=== PATIENT | female | born 1985 | race Caucasian/White ===

== ENCOUNTER → 2016-06-06 | Outpatient (CLI) | payer OTHER ==
[~2016-06-06] MED LIST: NORC5TAB PO
[2016-06-06 11:28] LABS: BASO # 0.1 K/mm3 (0.0-0.2); BASO % 1.1 % (0.0-1.0); EOS # 0.2 K/mm3 (0.0-0.50); EOS % 2.7 % (0.0-3.0); LYMPH # 1.7 K/mm3 (1.5-6.5); LYMPH % 22.2 % (24.0-44.0); MEAN CORPUSCULAR HEMOGLOBIN 30.1 pg (27.0-33.0); MEAN CORPUSCULAR VOLUME 91.3 fl (80.0-96.0); MONO # 0.4 K/mm3 (0.0-0.8); NEUTROPHILS # 4.7 K/mm3 (1.8-7.7); NEUTROPHILS % 67.4 % (36.0-66.0); RED CELL DISTRIBUTION WIDTH 13.2 % (11.5-14.5)
[2016-06-06 11:54] LABS: ALBUMIN/GLOBULIN RATIO 1.33 (1.00-1.93); ALKALINE PHOSPHATASE 101 U/L (45-117); ALT/SGPT 23 U/L (12-78); ANION GAP 6 MEQ/L (8-16); AST/SGOT 17 U/L (15-37); BILIRUBIN,TOTAL 0.8 MG/DL (0.2-1.0); BLOOD UREA NITROGEN 9 MG/DL (7-18); CALCIUM LEVEL 9.4 MG/DL (8.5-10.1); CARBON DIOXIDE LEVEL 29 MEQ/L (21-32); CHLORIDE LEVEL 106 MEQ/L (98-107); CREATININE FOR GFR 0.75 MG/DL (0.55-1.02); GLOMERULAR FILTRATION RATE > 60.0 (>60); GLUCOSE, FASTING 98 MG/DL (70-105); POTASSIUM SERUM 4.6 MEQ/L (3.5-5.1); SODIUM LEVEL 141 MEQ/L (136-145)
== END ==
LOC: M LAB 10:44
PROVIDERS: ATTEND Physician Assistant Medical
DX: K59.00 Constipation, unspecified (principal)

== ENCOUNTER → 2016-10-29 | Outpatient (CLI) | payer OTHER ==
[~2016-10-29] MED LIST changes: +NORC1TAB4 PO; -NORC5TAB PO
[2016-10-29 09:39] LABS: BASO % 0.7 % (0.0-1.0); EOS # 0.3 K/mm3 (0.0-0.50); EOS % 4.4 % (0.0-3.0); LYMPH # 1.4 K/mm3 (1.5-6.5); LYMPH % 20.4 % (24.0-44.0); MEAN CORPUSCULAR HEMOGLOBIN 32.4 pg (27.0-33.0); MEAN CORPUSCULAR HGB CONC 34.4 g/dl (32.0-36.5); MONO # 0.5 K/mm3 (0.0-0.8); MONO % 7.9 % (0.0-5.0); NEUTROPHILS # 4.3 K/mm3 (1.8-7.7); NEUTROPHILS % 64.6 % (36.0-66.0); RED CELL DISTRIBUTION WIDTH 12.5 % (11.5-14.5); WHITE BLOOD COUNT 6.7 K/mm3 (4.0-10.0)
[2016-10-29 10:22] LABS: ALBUMIN 3.7 GM/DL (3.2-5.2); ALBUMIN/GLOBULIN RATIO 1.09 (1.00-1.93); ALKALINE PHOSPHATASE 86 U/L (45-117); ALT/SGPT 39 U/L (12-78); ANION GAP 10 MEQ/L (8-16); AST/SGOT 27 U/L (15-37); BILIRUBIN,TOTAL 0.9 MG/DL (0.2-1.0); BLOOD UREA NITROGEN 11 MG/DL (7-18); CALCIUM LEVEL 8.8 MG/DL (8.5-10.1); CARBON DIOXIDE LEVEL 23 MEQ/L (21-32); CHLORIDE LEVEL 107 MEQ/L (98-107); CREATININE FOR GFR 0.77 MG/DL (0.55-1.02); GLOMERULAR FILTRATION RATE > 60.0 (>60); GLUCOSE, FASTING 136 MG/DL (70-105); POTASSIUM SERUM 4.4 MEQ/L (3.5-5.1); SODIUM LEVEL 140 MEQ/L (136-145); TOTAL PROTEIN 7.1 GM/DL (6.4-8.2)
[2016-10-29 10:49] LABS: VITAMIN B12 LEVEL 261 PG/ML
[2016-10-29 11:49] LABS: ALBUMIN 4.24 GM/DL (3.29-5.55); ALBUMIN % 59.7 % (55.8-66.1); GAMMA GLOBULIN % 14.8 % (11.1-18.8)
[2016-11-01 00:07] LABS: Lyme Disease IgG Ab 18 kDa Ban Absent (.); Lyme Disease IgG Ab 23 kDa Ban Absent (.); Lyme Disease IgG Ab 28 kDa Ban Absent (.); Lyme Disease IgG Ab 30 kDa Ban Absent (.); Lyme Disease IgG Ab 39 kDa Ban Absent (.); Lyme Disease IgG Ab 41 kDa Ban Absent (.); Lyme Disease IgG Ab 45 kDa Ban Absent (.); Lyme Disease IgG Ab 58 kDa Ban Absent (.); Lyme Disease IgG Ab 66 kDa Ban Absent (.); Lyme Disease IgG Ab 93 kDa Ban Absent (.); Lyme Disease IgG West Blot Int Negative (.); Lyme Disease IgG/IgM Antibodie <0.91 ISR (0.00-0.90); Lyme Disease IgM Ab 23 kDa Ban Absent (.); Lyme Disease IgM Ab 39 kDa Ban Absent (.); Lyme Disease IgM Ab 41 kDa Ban Absent (.); Lyme Disease IgM Ab Quantitati 0.88 index (0.00-0.79); Lyme Disease IgM West Blot Int Negative (.)
== END ==
LOC: M LAB 08:49
PROVIDERS: ATTEND Physician Assistant Medical
DX: M62.81 Muscle weakness (generalized) (principal)

== ENCOUNTER → 2016-11-08 | Outpatient (CLI) | payer OTHER ==
[2016-11-08 18:00] LABS: BASO # 0.1 K/mm3 (0.0-0.2); BASO % 0.6 % (0.0-1.0); EOS # 0.3 K/mm3 (0.0-0.50); EOS % 2.8 % (0.0-3.0); LYMPH # 2.4 K/mm3 (1.5-6.5); LYMPH % 20.9 % (24.0-44.0); MEAN CORPUSCULAR HGB CONC 34.9 g/dl (32.0-36.5); MEAN CORPUSCULAR VOLUME 91.6 fl (80.0-96.0); MONO # 0.5 K/mm3 (0.0-0.8); MONO % 4.1 % (0.0-5.0); NEUTROPHILS # 8.1 K/mm3 (1.8-7.7); NEUTROPHILS % 70.7 % (36.0-66.0); RED CELL DISTRIBUTION WIDTH 12.5 % (11.5-14.5); WHITE BLOOD COUNT 11.5 K/mm3 (4.0-10.0)
[2016-11-08 18:46] LABS: ALBUMIN/GLOBULIN RATIO 1.14 (1.00-1.93); ALKALINE PHOSPHATASE 103 U/L (45-117); ALT/SGPT 34 U/L (12-78); ANION GAP 7 MEQ/L (8-16); AST/SGOT 17 U/L (15-37); BILIRUBIN,TOTAL 0.7 MG/DL (0.2-1.0); BLOOD UREA NITROGEN 11 MG/DL (7-18); CALCIUM LEVEL 9.1 MG/DL (8.5-10.1); CARBON DIOXIDE LEVEL 25 MEQ/L (21-32); CHLORIDE LEVEL 107 MEQ/L (98-107); CREATININE FOR GFR 0.81 MG/DL (0.55-1.02); GLOMERULAR FILTRATION RATE > 60.0 (>60); GLUCOSE, FASTING 111 MG/DL (70-105); POTASSIUM SERUM 3.6 MEQ/L (3.5-5.1); SODIUM LEVEL 139 MEQ/L (136-145); TOTAL PROTEIN 7.5 GM/DL (6.4-8.2)
--- NOTE | 2016-11-13 07:14 | REP ---
MR BRAIN WITHOUT CONTRAST: HISTORY: Lyme disease. COMPARISON: CT 03/20/2014. There are no areas of abnormal signal intensity in the brain parenchyma. There is no intraparenchymal hemorrhage, infarct, mass or midline shift. An 8 mm pineal cyst is present. The ventricular system is normal in appearance. A 2.4 cm arachnoid cyst is present in the posterior fossa. There is no subdural fluid collection. Mucosal thickening is present in the ethmoid, maxillary and sphenoid sinuses. IMPRESSION: 1. There is no intracranial lesion. 2. 2.4 cm posterior fossa arachnoid cyst. Signed by Larry Herron MD 11/13/2016 09:40 A
== END ==
LOC: M RAD 17:13 → M LAB 17:13
PROVIDERS: ATTEND Physician Assistant Medical
DX: A69.20 Lyme disease, unspecified (principal)

== ENCOUNTER → 2016-11-13 | Outpatient (REF) | payer OTHER ==
[2016-11-16 00:08] LABS: Lyme Disease IgG Ab 18 kDa Ban Absent (.); Lyme Disease IgG Ab 23 kDa Ban Absent (.); Lyme Disease IgG Ab 28 kDa Ban Absent (.); Lyme Disease IgG Ab 30 kDa Ban Absent (.); Lyme Disease IgG Ab 39 kDa Ban Absent (.); Lyme Disease IgG Ab 41 kDa Ban Present (.); Lyme Disease IgG Ab 45 kDa Ban Absent (.); Lyme Disease IgG Ab 58 kDa Ban Absent (.); Lyme Disease IgG Ab 66 kDa Ban Absent (.); Lyme Disease IgG Ab 93 kDa Ban Absent (.); Lyme Disease IgG West Blot Int Negative (.); Lyme Disease IgG/IgM Antibodie <0.91 ISR (0.00-0.90); Lyme Disease IgM Ab 23 kDa Ban Present (.); Lyme Disease IgM Ab 39 kDa Ban Absent (.); Lyme Disease IgM Ab 41 kDa Ban Present (.); Lyme Disease IgM Ab Quantitati 0.82 index (0.00-0.79); Lyme Disease IgM West Blot Int Positive (.)
== END ==
LOC: M LABNEURO 12:45
PROVIDERS: ATTEND Psychiatry & Neurology Neurology
DX: A69.20 Lyme disease, unspecified (principal)

== ENCOUNTER → 2016-11-20 | Outpatient (REF) | payer OTHER ==
[2016-11-20 13:43] LABS: CONTROL LINE MONO RF C INT CTR LINE PRESENT
== END ==
LOC: M LABDRAW1 13:13
PROVIDERS: ATTEND Physician Assistant Medical
DX: M62.81 Muscle weakness (generalized) (principal)

== ENCOUNTER → 2016-12-26 | Outpatient (REF) | payer OTHER ==
[2016-12-26 16:28] LABS: BASO % 0.6 % (0.0-1.0); EOS # 0.2 K/mm3 (0.0-0.50); EOS % 3.5 % (0.0-3.0); LARGE UNSTAINED CELL # 0.1 K/mm3 (0.0-0.4); LARGE UNSTAINED CELL % 1.2 % (0.0-4.0); LYMPH # 1.5 K/mm3 (1.5-6.5); LYMPH % 19.5 % (24.0-44.0); MEAN CORPUSCULAR HEMOGLOBIN 31.8 pg (27.0-33.0); MEAN CORPUSCULAR HGB CONC 34.3 g/dl (32.0-36.5); MEAN CORPUSCULAR VOLUME 92.6 fl (80.0-96.0); MONO # 0.4 K/mm3 (0.0-0.8); MONO % 4.9 % (0.0-5.0); NEUTROPHILS # 5.1 K/mm3 (1.8-7.7); NEUTROPHILS % 70.3 % (36.0-66.0); PLATELET COUNT, AUTOMATED 243 k/mm3 (150-450); RED CELL DISTRIBUTION WIDTH 12.5 % (11.5-14.5); WHITE BLOOD COUNT 7.2 K/mm3 (4.0-10.0)
[2016-12-26 16:59] LABS: ERYTHROCYTE SEDIMENTATION RATE 7 mm/hr (0-20)
[2016-12-31 00:11] LABS: Lyme Disease IgG Ab 18 kDa Ban Absent (.); Lyme Disease IgG Ab 23 kDa Ban Absent (.); Lyme Disease IgG Ab 28 kDa Ban Absent (.); Lyme Disease IgG Ab 30 kDa Ban Absent (.); Lyme Disease IgG Ab 39 kDa Ban Absent (.); Lyme Disease IgG Ab 41 kDa Ban Absent (.); Lyme Disease IgG Ab 45 kDa Ban Absent (.); Lyme Disease IgG Ab 58 kDa Ban Absent (.); Lyme Disease IgG Ab 66 kDa Ban Absent (.); Lyme Disease IgG Ab 93 kDa Ban Absent (.); Lyme Disease IgG West Blot Int Negative (.); Lyme Disease IgG/IgM Antibodie <0.91 ISR (0.00-0.90); Lyme Disease IgM Ab 23 kDa Ban Present (.); Lyme Disease IgM Ab 39 kDa Ban Absent (.); Lyme Disease IgM Ab 41 kDa Ban Absent (.); Lyme Disease IgM Ab Quantitati 0.81 index (0.00-0.79); Lyme Disease IgM West Blot Int Negative (.)
== END ==
LOC: M SFHCPLAZ 15:38
PROVIDERS: ATTEND Internal Medicine Infectious Disease
DX: A69.20 Lyme disease, unspecified (principal); M25.50 Pain in unspecified joint

== ENCOUNTER → 2017-07-08 | Outpatient (REF) | payer OTHER ==
[2017-07-08 15:17] LABS: CHLAMYDIA DNA AMPLIFICATION NEGATIVE (NEGATIVE); GC DNA AMPLIFICATION NEGATIVE (NEGATIVE)
== END ==
LOC: M LAB REF 13:03
DX: Z00.00 Encounter for general adult medical examination without abnormal findings (principal)

== ENCOUNTER → 2017-07-08 | Outpatient (REF) | payer OTHER ==
[2017-07-08 13:18] LABS: BASO % 0.5 % (0.0-1.0); EOS # 0.2 10^3/uL (0.0-0.50); EOS % 2.1 % (0.0-3.0); HEMATOCRIT 43.8 % (36.0-47.0); HEMOGLOBIN 14.7 g/dl (12.0-16.0); IMMATURE GRANULOCYTE % 0.3 % (0-3.0); LYMPH # 1.4 10^3/uL (1.5-6.5); LYMPH % 18.6 % (24.0-44.0); MEAN CORPUSCULAR HEMOGLOBIN 30.5 pg (27.0-33.0); MEAN CORPUSCULAR HGB CONC 33.6 g/dl (32.0-36.5); MEAN CORPUSCULAR VOLUME 90.9 fl (80.0-96.0); MONO # 0.5 10^3/uL (0.0-0.8); MONO % 6.5 % (0.0-5.0); NEUTROPHILS # 5.5 10^3/uL (1.8-7.7); PLATELET COUNT, AUTOMATED 282 10^3/uL (150-450); RED BLOOD COUNT 4.82 10^6/uL (4.00-5.40); RED CELL DISTRIBUTION WIDTH 12.6 % (11.5-14.5); WHITE BLOOD COUNT 7.7 10^3/uL (4.0-10.0)
[2017-07-08 13:38] LABS: TOTAL 25(OH) VITAMIN D 18.6 NG/ML (30.0-100.0)
[2017-07-08 13:47] LABS: ALBUMIN 4.1 GM/DL (3.2-5.2); ALBUMIN/GLOBULIN RATIO 1.14 (1.00-1.93); ALKALINE PHOSPHATASE 90 U/L (45-117); ALT/SGPT 29 U/L (12-78); ANION GAP 8 MEQ/L (8-16); AST/SGOT 18 U/L (7-37); BILIRUBIN,TOTAL 1.3 MG/DL (0.2-1.0); BLOOD UREA NITROGEN 9 MG/DL (7-18); CALCIUM LEVEL 9.1 MG/DL (8.5-10.1); CARBON DIOXIDE LEVEL 25 MEQ/L (21-32); CHLORIDE LEVEL 105 MEQ/L (98-107); CHOLESTEROL LEVEL 187 MG/DL (<200); CHOLESTEROL RISK RATIO 4.155 (<5); CREATININE FOR GFR 0.73 MG/DL (0.55-1.30); GLOMERULAR FILTRATION RATE > 60.0 (>60); GLUCOSE, FASTING 86 MG/DL (70-100); HDL CHOLESTEROL 45 MG/DL (>40); LDL CHOLESTEROL 124.4 MG/DL (<100); NON-HDL-C 142 MG/DL; POTASSIUM SERUM 4.1 MEQ/L (3.5-5.1); SODIUM LEVEL 138 MEQ/L (136-145); TOTAL PROTEIN 7.7 GM/DL (6.4-8.2); TRIGLYCERIDES LEVEL 88 MG/DL (<150)
[2017-07-09 11:29] LABS: HIV 1&2 SCREEN CENTAUR NEGATIVE (NEGATIVE)
== END ==
LOC: M LAB REF 12:24
DX: Z00.00 Encounter for general adult medical examination without abnormal findings (principal)

== ENCOUNTER 2017-09-01 10:12 | Day surgery (SDC) | payer OTHER ==
[2017-09-01 11:33] LABS: CONTROL LINE UCG INT CTR LINE PRESENT; URINE PREG TEST NEGATIVE (NEGATIVE)
[2017-09-01] MEDS: LR 1,000 ML IV (11:33)
[2017-09-01] MEDS ORDERED: fentaNYL 100 MCG/2 ML INJECTION (J3010) As Ordered (12:32)
[2017-09-01] MEDS ORDERED: MIDAZOLAM INJ 2 MG/2 ML VIAL (J2250) As Ordered (12:32)
[2017-09-01] MEDS ORDERED: KETOROLAC 60 MG/2 ML VIAL (J1885) As Ordered (12:33)
[2017-09-01] MEDS ORDERED: dexameTHASONE 4 MG/ML 1ML VIAL (J1100) As Ordered (12:33)
[2017-09-01] MEDS ORDERED: PROPOFOL 200 MG/20 ML VIAL As Ordered (12:33)
[2017-09-01] MEDS ORDERED: LIDOCAINE 2% INJ 100 MG/5 ML SDV (FOR ANES.) As Ordered (12:34)
[2017-09-01] MEDS ORDERED: ONDANSETRON 4MG/2ML VIAL (J2405) As Ordered (12:34)
[2017-09-01] MEDS ORDERED: PERCOCET 5MG/325MG TAB As Ordered (14:48)
[2017-09-01] MEDS: PERCOCET 5MG/325MG TAB PO (14:55)
[2017-09-01] MEDS ORDERED: NEOSTIGMINE 10 MG/10 ML VIAL (J2710) As Ordered (14:55)
[2017-09-01] MEDS ORDERED: GLYCOPYRROLATE INJ 0.2 MG/ML 2 ML VIAL As Ordered (14:56)
[2017-09-01] MEDS ORDERED: IBUPROFEN 600 MG TAB PO (15:00)
[2017-09-01] MEDS ORDERED: LR 1,000 ML IV ×2 (15:00)
[2017-09-01] MEDS ORDERED: ONDANSETRON 4MG/2ML VIAL (J2405) IV (15:00)
[2017-09-01] MEDS ORDERED: fentaNYL 100 MCG/2 ML INJECTION (J3010) IV (15:00)
[2017-09-01] MEDS ORDERED: NORCO, ANEXSIA 5/325MG TABLET (HYDROcodone/ACETAMINOPHEN) PO (15:00)
== END 2017-09-01 15:55 | disposition home or self-care (01) ==
LOC: M SDC 10:12
DX: Z30.2 Encounter for sterilization (principal); A69.20 Lyme disease, unspecified; E16.2 Hypoglycemia, unspecified; F41.9 Anxiety disorder, unspecified; F32.9 Major depressive disorder, single episode, unspecified; R51 Headache; Z88.0 Allergy status to penicillin; Z97.5 Presence of (intrauterine) contraceptive device; Z87.42 Personal history of other diseases of the female genital tract
CPT/HCPCS: 58662

== ENCOUNTER → 2017-11-30 | Outpatient (REF) | payer OTHER | LOC: M LAB REF 09:17 | DX: J02.9 Acute pharyngitis, unspecified (principal) ==

== ENCOUNTER → 2018-03-26 | Outpatient (CLI) | payer OTHER | LOC: M RAD 07:58 | DX: J31.0 Chronic rhinitis (principal); J01.01 Acute recurrent maxillary sinusitis; J34.2 Deviated nasal septum | CPT/HCPCS: 70486 ==

== ENCOUNTER → 2018-04-21 | Outpatient (REF) | payer OTHER ==
[2018-04-21 13:35] LABS: BASO % 0.3 % (0.0-1.0); EOS % 0.3 % (0.0-3.0); HEMATOCRIT 45.3 % (36.0-47.0); HEMOGLOBIN 14.9 g/dl (12.0-15.5); IMMATURE GRANULOCYTE % 0.6 % (0-3.0); LYMPH # 2.1 10^3/uL (1.5-4.5); LYMPH % 15.5 % (24.0-44.0); MEAN CORPUSCULAR HEMOGLOBIN 30.9 pg (27.0-33.0); MEAN CORPUSCULAR HGB CONC 32.9 g/dl (32.0-36.5); MONO # 0.8 10^3/uL (0.0-0.8); MONO % 6.2 % (0.0-5.0); NEUTROPHILS # 10.3 10^3/uL (1.8-7.7); NEUTROPHILS % 77.1 % (36.0-66.0); PLATELET COUNT, AUTOMATED 281 10^3/uL (150-450); RED BLOOD COUNT 4.82 10^6/uL (4.00-5.40); RED CELL DISTRIBUTION WIDTH 12.9 % (11.5-14.5); WHITE BLOOD COUNT 13.4 10^3/uL (4.0-10.0)
[2018-04-21 13:49] LABS: ALBUMIN 3.8 GM/DL (3.2-5.2); ALBUMIN/GLOBULIN RATIO 1.15 (1.00-1.93); ALKALINE PHOSPHATASE 90 U/L (45-117); ALT/SGPT 24 U/L (12-78); ANION GAP 8 MEQ/L (8-16); AST/SGOT 10 U/L (7-37); BLOOD UREA NITROGEN 9 MG/DL (7-18); CALCIUM LEVEL 8.9 MG/DL (8.5-10.1); CARBON DIOXIDE LEVEL 26 MEQ/L (21-32); CHLORIDE LEVEL 106 MEQ/L (98-107); GLOMERULAR FILTRATION RATE > 60.0 (>60); GLUCOSE, FASTING 81 MG/DL (70-100); POTASSIUM SERUM 4.2 MEQ/L (3.5-5.1); SODIUM LEVEL 140 MEQ/L (136-145); TOTAL PROTEIN 7.1 GM/DL (6.4-8.2)
[2018-04-21 13:51] LABS: TOTAL 25(OH) VITAMIN D 18.6 NG/ML (30.0-100.0)
[2018-04-21 13:55] LABS: ESTIMATED AVERAGE GLUCOSE 123 MG/DL (60-110); HEMOGLOBIN A1c 5.9 %
== END ==
LOC: M LAB REF 12:22
DX: Z00.00 Encounter for general adult medical examination without abnormal findings (principal)

== ENCOUNTER → 2018-06-25 | Outpatient (REF) | payer OTHER ==
[~2018-06-25] MED LIST changes: +CITA10TA5 PO; +FLON27.5; +VITA50005 PO
[2018-06-25 18:10] LABS: INFLUENZA A AMPLIFICATION NEGATIVE (NEGATIVE); INFLUENZA B AMPLIFICATION NEGATIVE (NEGATIVE)
== END ==
LOC: M LAB REF 17:17
PROVIDERS: ATTEND Physician Assistant
DX: J11.1 Influenza due to unidentified influenza virus with other respiratory manifestations (principal)

== ENCOUNTER 2018-07-06 11:21 | Emergency (ER) | payer OTHER ==
[~2018-07-06] VITALS: Ht 157.5 cm; Wt 72.7 kg
[2018-07-06] MEDS ORDERED: CITA20TA4 (11:31)
--- NOTE | 2018-07-06 12:02 | REP ---
Clinical: Trauma/injury . Technique: AP, lateral, bilateral oblique views left ankle . Findings: Lateral view demonstrates a linear defect at the articular surface along the posterior aspect of the tibia/posterior malleolus which is not identified on the any other view and subtle fracture cannot be excluded. Correlation with physical examination and mechanism of injury may be warranted. The remainder of the examination appears relatively normal. Ankle mortise appears intact. Impression: 1. Subtle linear defect along the articular aspect of the posterior tibia/posterior malleolus which raises the possibility of fracture/injury. Correlation is required. 2. Remainder examination appears normal. Electronically Signed by Salvatore Ford MD 07/06/2018 11:53 A
[2018-07-06] MEDS ORDERED: ULTR50TA8 PO (12:30)
[2018-07-06 12:36] VITALS: BP 134/72
[2018-07-06] MEDS ORDERED: ACETAMINOPHEN TAB 650MG DOSE (2X325MG) PO ONE (12:45)
[2018-07-06] MEDS ORDERED: traMADol 50 MG TAB PO ONE (12:45)
== END 2018-07-06 12:59 | disposition home or self-care (01) ==
LOC: M ED 11:21
DX: S99.912A Unspecified injury of left ankle, initial encounter (principal); R93.7 Abnormal findings on diagnostic imaging of other parts of musculoskeletal system; W00.0XXA Fall on same level due to ice and snow, initial encounter; Y92.098 Other place in other non-institutional residence as the place of occurrence of the external cause; F41.9 Anxiety disorder, unspecified; F32.9 Major depressive disorder, single episode, unspecified; Z88.0 Allergy status to penicillin; Z88.1 Allergy status to other antibiotic agents; Z88.8 Allergy status to other drugs, medicaments and biological substances; Z79.899 Other long term (current) drug therapy

== ENCOUNTER → 2018-10-06 | Outpatient (CLI) | payer OTHER ==
[~2018-10-06] MED LIST changes: +CITA20TA6 PO; -NORC1TAB4 PO; +NORC1TAB7 PO; +OMEP20CA3 PO; +ULTR50TA8 PO; +[UNRECOGNIZED DRUG - CODE] PO
--- NOTE | 2018-10-06 14:22 | REP ---
Clinical: Pain. Technique: AP, lateral, bilateral oblique views left ankle. Findings: Swelling over the medial malleolus is appreciated. No acute fracture dislocation. Joint spaces and ankle mortise are intact and normal for age. Lateral view demonstrates small calcaneal heal spur. Impression: Medial swelling. No acute fracture or dislocation. Electronically Signed by Salvatore Ford MD 10/06/2018 02:14 P
--- NOTE | 2018-10-06 14:23 | REP ---
Clinical: Medial left foot pain Technique: AP, lateral, bilateral oblique views left foot . Findings: The osseous structures and joint spaces are intact and normal. There is no evidence for acute fracture or dislocation. Small calcaneal heal spur noted. Surrounding soft tissues are unremarkable. No subcutaneous emphysema or radiodense foreign body. Impression: No acute fracture or dislocation. Electronically Signed by Salvatore Ford MD 10/06/2018 02:15 P
== END ==
LOC: M WUC 12:51
PROVIDERS: ATTEND Physician Assistant
DX: M25.572 Pain in left ankle and joints of left foot (principal)

== ENCOUNTER 2019-03-16 14:56 | Emergency (ER) | payer OTHER ==
[~2019-03-16] VITALS: Ht 157.5 cm; Wt 77.5 kg
[~2019-03-16 14:56] MED LIST changes: +OMEP1CAP73 PO; -OMEP20CA3 PO; +PSEU120T32 PO; -[UNRECOGNIZED DRUG - CODE] PO
[2019-03-16] MEDS ORDERED: IBUP-1022 PO (15:00)
[2019-03-16] MEDS ORDERED: LIDO5DIS41 TD (17:07)
[2019-03-16] MEDS ORDERED: SKEL800T97 PO (17:07)
[2019-03-16] MEDS ORDERED: NAPR-837 PO (17:07)
[2019-03-16 17:12] VITALS: BP 118/74
== END 2019-03-16 17:16 | disposition home or self-care (01) ==
LOC: M ED 14:56
DX: S39.012A Strain of muscle, fascia and tendon of lower back, initial encounter (principal); X58.XXXA Exposure to other specified factors, initial encounter; F41.9 Anxiety disorder, unspecified; F33.9 Major depressive disorder, recurrent, unspecified; Z90.49 Acquired absence of other specified parts of digestive tract; Z88.0 Allergy status to penicillin; Z88.1 Allergy status to other antibiotic agents; Z88.8 Allergy status to other drugs, medicaments and biological substances; Z79.899 Other long term (current) drug therapy

== ENCOUNTER → 2019-07-07 | Outpatient (REF) | payer OTHER ==
[~2019-07-07] MED LIST changes: +IBUP-1022 PO; +LIDO5DIS41 TD; +NAPR-837 PO; +SKEL800T97 PO
== END ==
LOC: M SFHCWAGY 12:58
PROVIDERS: ATTEND Advanced Practice Midwife
DX: Z12.4 Encounter for screening for malignant neoplasm of cervix (principal)

== ENCOUNTER → 2019-08-05 | Outpatient (CLI) | payer OTHER ==
[2019-08-05 09:56] LABS: HEMATOCRIT 45.4 % (36.0-47.0); HEMOGLOBIN 14.7 g/dl (12.0-15.5); MEAN CORPUSCULAR HEMOGLOBIN 30.4 pg (27.0-33.0); MEAN CORPUSCULAR HGB CONC 32.4 g/dl (32.0-36.5); MEAN CORPUSCULAR VOLUME 93.8 fl (80.0-96.0); PLATELET COUNT, AUTOMATED 268 10^3/uL (150-450); RED BLOOD COUNT 4.84 10^6/uL (4.00-5.40)
[2019-08-05 10:47] LABS: FREE T4 0.88 NG/DL (0.76-1.46); PROLACTIN 6.7 NG/ML; THYROID STIMULATING HORMONE 2.01 uIU/ML (0.358-3.740)
[2019-08-05 11:34] LABS: HEMOGLOBIN A1c 5.7 %
--- NOTE | 2019-08-05 11:40 | REP ---
PELVIC ULTRASOUND: Real-time sonographic evaluation of the pelvis performed utilizing transabdominal and endovaginal technique. Bladder measures 3.9 x 2.2 x 5.9 cm. Uterus measures 8.9 x 4.1 x 4.7 cm. Endometrial thickness is 9 mm. There is no endometrial fluid collection. Right ovary measures 3.1 x 2.3 x 3.2 cm and left ovary 2.5 x 1.6 x 2.8 cm. A dominant follicle of the right ovary measures 1.8 x 1.4 x 1.9 cm. There is no evidence of ovarian torsion, blood flow is seen in each ovary with duplex Doppler evaluation. RI right ovary is 0.47 and left ovary is 0.56. There is no free fluid. IMPRESSION: Essentially negative pelvic ultrasound. Electronically Signed by Sancho Dhillon MD 08/05/2019 04:52 P
[2019-08-07 10:06] LABS: 17 HYDROXY PROGESTERONE 134 ng/dL (.); DEHYDROEPIANDROSTERONE SULFATE 251.8 ug/dL (84.8-378.0); TESTOSTERONE FREE (DIRECT) 2.5 pg/mL (0.0-4.2)
== END ==
LOC: M RAD 09:22
PROVIDERS: ATTEND Advanced Practice Midwife
DX: R10.2 Pelvic and perineal pain (principal); N92.6 Irregular menstruation, unspecified

== ENCOUNTER → 2019-08-26 | Outpatient (REF) | payer OTHER ==
[2019-08-26 15:42] LABS: HEMOGLOBIN A1c 5.9 %
== END ==
LOC: M LAB REF 14:42
PROVIDERS: ATTEND Nurse Practitioner Adult Health
DX: Z00.00 Encounter for general adult medical examination without abnormal findings (principal)

== ENCOUNTER → 2019-10-20 | Outpatient (REF) | payer OTHER ==
[2019-10-20 15:26] LABS: HEMOGLOBIN A1c 5.5 %
== END ==
LOC: M LAB REF 12:30
PROVIDERS: ATTEND Nurse Practitioner Adult Health
DX: R73.03 Prediabetes (principal)

== ENCOUNTER → 2020-01-19 | Outpatient (REF) | payer OTHER ==
[2020-01-19 19:45] LABS: HEMOGLOBIN A1c 5.6 %
== END ==
LOC: M LAB REF 18:27
PROVIDERS: ATTEND Nurse Practitioner Adult Health
DX: R73.03 Prediabetes (principal)

== ENCOUNTER → 2020-06-07 | Outpatient (REF) | payer OTHER ==
[2020-06-07 18:38] LABS: HEMOGLOBIN A1c 5.4 %
== END ==
LOC: M LAB REF 16:38
PROVIDERS: ATTEND Nurse Practitioner Adult Health
DX: R73.03 Prediabetes (principal)

== ENCOUNTER 2020-10-18 09:31 | Emergency (ER) | payer OTHER ==
[~2020-10-18] VITALS: Ht 157.5 cm; Wt 72.8 kg
[2020-10-18 09:32] VITALS: BP 131/72
--- NOTE | 2020-10-18 10:42 | REP ---
INDICATION: rolled ankle COMPARISON: None. TECHNIQUE: AP, lateral, bilateral oblique views. FINDINGS: Mild swelling. No acute fracture or dislocation. Ankle mortise and talar dome are intact. IMPRESSION: Mild swelling. No acute fracture or dislocation. <Electronically signed by Salvatore Ford > 10/18/20 [id number]
--- NOTE | 2020-10-18 10:44 | REP ---
INDICATION: rolled ankle COMPARISON: None. TECHNIQUE: AP, lateral, bilateral oblique and sunrise views. FINDINGS: The osseous structures and joint spaces are intact and normal. There is no evidence for acute fracture or dislocation. No joint effusion is appreciated. Surrounding soft tissues are unremarkable. No subcutaneous emphysema or radiodense foreign body. IMPRESSION: Normal examination. No acute fracture or dislocation. <Electronically signed by Salvatore Ford > 10/18/20 [id number]
== END 2020-10-18 11:23 | disposition home or self-care (01) ==
LOC: M ED 09:31
DX: S93.402A Sprain of unspecified ligament of left ankle, initial encounter (principal); W18.40XA Slipping, tripping and stumbling without falling, unspecified, initial encounter; Y92.9 Unspecified place or not applicable; Y93.9 Activity, unspecified; Y99.9 Unspecified external cause status; Z88.0 Allergy status to penicillin; Z88.1 Allergy status to other antibiotic agents

== ENCOUNTER 2021-05-07 12:19 | Emergency (ER) | payer OTHER ==
[~2021-05-07] VITALS: Ht 157.5 cm; Wt 75.7 kg
[~2021-05-07 12:19] MED LIST changes: -CITA10TA5 PO; +CITA10TA7 PO
[2021-05-07 12:20] VITALS: BP 119/78
[2021-05-07] MEDS ORDERED: DOXY100C3 (12:34)
[2021-05-07] MEDS ORDERED: BUPR150T12 (12:34)
[2021-05-07] MEDS ORDERED: METH4PACK (12:34)
[2021-05-07] MEDS ORDERED: ALBU83IN (12:34)
[2021-05-07] MEDS ORDERED: BUSP5TA (12:34)
== END 2021-05-07 16:18 | disposition left against medical advice (07) ==
LOC: M ED 12:19
DX: Z53.21 Procedure and treatment not carried out due to patient leaving prior to being seen by health care provider (principal)

== ENCOUNTER → 2021-09-11 | Outpatient (CLI) | payer OTHER ==
[~2021-09-11] MED LIST changes: +ALBU83IN; +BUPR150T12; +BUSP5TA; +DOXY100C3; +METH4PACK
[2021-09-11 16:32] LABS: HEMOGLOBIN A1c 5.5 %
== END ==
LOC: M PLALAB 12:42
PROVIDERS: ATTEND Nurse Practitioner
DX: R73.01 Impaired fasting glucose (principal)

== ENCOUNTER → 2021-11-05 | Outpatient (CLI) | payer OTHER ==
[~2021-11-05] MED LIST changes: +ALBU2.5V10; -ALBU83IN
== END ==
LOC: M WHC 07:42
PROVIDERS: ATTEND Obstetrics & Gynecology
DX: N93.9 Abnormal uterine and vaginal bleeding, unspecified (principal)

== ENCOUNTER → 2021-11-09 | Outpatient (CLI) | payer OTHER | LOC: M RAD 13:39 | PROVIDERS: ATTEND Obstetrics & Gynecology | DX: N93.9 Abnormal uterine and vaginal bleeding, unspecified (principal) ==

== ENCOUNTER → 2022-01-02 | Outpatient (CLI) | payer OTHER ==
[~2022-01-02] MED LIST changes: -BUSP5TA; +BUSP5TA PO; +CITA40TA7 PO; +PANT40TA29 PO
== END ==
LOC: M LABSMTC 10:46
PROVIDERS: ATTEND Anesthesiology
DX: Z01.818 Encounter for other preprocedural examination (principal); Z11.52 Encounter for screening for COVID-19

== ENCOUNTER 2022-01-07 10:12 | Day surgery (SDC) | payer OTHER ==
[2022-01-07] VITALS (8 sets, daily range): BP systolic 94–114; BP diastolic 53–63
[~2022-01-07] VITALS: Ht 157.5 cm; Wt 76.8 kg
[~2022-01-07 10:12] MED LIST changes: -BUPR150T12; +BUPR150T12 PO; +LR 1,000 ML IV SCH; +ceFAZolin SOD 2 GM in IV 1 EA IV ONE
[2022-01-07 10:58] LABS: HEMATOCRIT 40.5 % (36.0-47.0); HEMOGLOBIN 13.4 g/dl (12.0-15.5); MEAN CORPUSCULAR HEMOGLOBIN 30.4 pg (27.0-33.0); MEAN CORPUSCULAR HGB CONC 33.1 g/dl (32.0-36.5); MEAN CORPUSCULAR VOLUME 91.8 fl (80.0-96.0); PLATELET COUNT, AUTOMATED 293 10^3/uL (150-450); RED BLOOD COUNT 4.41 10^6/uL (4.00-5.40); WHITE BLOOD COUNT 9.2 10^3/uL (4.0-10.0)
[2022-01-07] MEDS ORDERED: KETAMINE HCL 200 MG/20 ML VIAL As Ordered ONE (11:07)
[2022-01-07] MEDS ORDERED: MIDAZOLAM INJ 2MG/2ML VIAL (J2250 PER 1MG) As Ordered ONE (11:08)
[2022-01-07] MEDS ORDERED: SUGAMMADEX SODIUM 500 MG/5 ML VIAL (BRIDION) As Ordered ONE (11:08)
[2022-01-07] MEDS ORDERED: propofoL 200 MG/20 ML VIAL As Ordered ONE (11:08)
[2022-01-07] MEDS ORDERED: fentaNYL 100 MCG/2 ML INJECTION As Ordered ONE ×2 (11:08→13:54)
[2022-01-07] MEDS ORDERED: ROCURONIUM BROMIDE 50 MG/5 ML VIAL As Ordered ONE (11:08)
[2022-01-07] MEDS ORDERED: LIDOCAINE 2% 100MG/5ML SDV (FOR ANES.) As Ordered ONE (11:09)
[2022-01-07] MEDS ORDERED: dexameTHASONE 4 MG/ML 1ML VIAL (J1100 PER 1MG) As Ordered ONE (11:09)
[2022-01-07] MEDS ORDERED: ONDANSETRON 4MG 2ML VIAL As Ordered ONE (11:09)
[2022-01-07] MEDS ORDERED: KETOROLAC 60MG 2ML VIAL As Ordered ONE (11:09)
[2022-01-07 11:25] LABS: HCG, SERUM QUALITATIVE NEGATIVE (NEGATIVE)
[2022-01-07] MEDS ORDERED: BUPIVACAINE HCL 0.25% 30ML VIAL As Ordered ONE (12:10)
[2022-01-07] MEDS ORDERED: METHYLENE BLUE 0.5% (5MG/ML) 10 ML AMP (PROVAYBLUE) As Ordered ONE (12:11)
[2022-01-07] MEDS ORDERED: ACETAMINOPHEN 1000MG 100ML IV BTL (OFIRMEV) (J0131 PER 10MG) As Ordered ONE (13:54)
[2022-01-07] MEDS ORDERED: ONDANSETRON 4MG 2ML VIAL IV PRN ×2 (14:15→14:30)
[2022-01-07] MEDS ORDERED: LR 1,000 ML IV SCH ×2 (14:15→14:25)
[2022-01-07] MEDS ORDERED: PERC5TAB12 PO (14:18)
[2022-01-07] MEDS ORDERED: IBUP1TAB7 PO (14:20)
[2022-01-07] MEDS ORDERED: ONDA4TAB6 PO (14:20)
[2022-01-07] MEDS ORDERED: COLA100C5 PO (14:21)
[2022-01-07] MEDS ORDERED: PERCOCET 5MG/325MG TAB PO PRN ×2 (14:30)
[2022-01-07] MEDS: fentaNYL 100 MCG/2 ML INJECTION IV PRN ×3 (14:38→14:57)
[2022-01-07] MEDS: oxyCODONE 5MG TAB PO PRN ×2 (14:38→15:11)
[2022-01-07] MEDS ORDERED: busPIRone 5 MG TAB PO SCH (18:00)
[2022-01-07] MEDS ORDERED: KETOROLAC 30 MG/ML 1ML VIAL IV SCH (20:00)
[2022-01-08] MEDS ORDERED: buPROPion **XL** TABLET 150MG (WELLBUTRIN XL) PO SCH (09:00)
[2022-01-08] MEDS ORDERED: CitaloPRAM (CeleXA) 20 MG TAB PO SCH (09:00)
[2022-01-08] MEDS ORDERED: IBUPROFEN 800 MG TAB PO PRN (14:00)
== END 2022-01-07 21:30 | disposition home or self-care (01) ==
LOC: M SDC 10:12 → M PED 15:35 → M SDC 21:30
PROVIDERS: ATTEND Obstetrics & Gynecology
DX: N93.9 Abnormal uterine and vaginal bleeding, unspecified (principal); R10.2 Pelvic and perineal pain; K21.9 Gastro-esophageal reflux disease without esophagitis; F41.9 Anxiety disorder, unspecified; F32.A Depression, unspecified; R51.9 Headache, unspecified; Z79.899 Other long term (current) drug therapy; Z91.013 Allergy to seafood; Z88.0 Allergy status to penicillin; Z88.1 Allergy status to other antibiotic agents; Z88.8 Allergy status to other drugs, medicaments and biological substances
CPT/HCPCS: 36415; 58571; 84703; 85027; 86850; 86900; 86901; 88307; J0131; J0690; J1100; J1885; J2250; J2405; J3010; Q9968; S2900

== ENCOUNTER → 2022-10-02 | Outpatient (REF) | payer OTHER ==
[~2022-10-02] MED LIST changes: +COLA100C5 PO; +IBUP1TAB7 PO; -LR 1,000 ML IV SCH; +ONDA4TAB6 PO; +PERC5TAB12 PO; -ceFAZolin SOD 2 GM in IV 1 EA IV ONE
== END ==
LOC: M SFHCWAGY 15:21
PROVIDERS: ATTEND Nurse Practitioner Family
DX: N39.0 Urinary tract infection, site not specified (principal)

== ENCOUNTER → 2022-10-22 | Outpatient (REF) | payer OTHER, SELFPAY | LOC: M SFHCWAGY 17:54 | PROVIDERS: ATTEND Nurse Practitioner Family | DX: R39.15 Urgency of urination (principal) ==

== ENCOUNTER 2025-01-28 04:12 | Emergency (ER) | payer OTHER, SELFPAY ==
[~2025-01-28] VITALS: Ht 157.5 cm; Wt 68.1 kg
[~2025-01-28 04:12] MED LIST changes: -IBUP-1022 PO; +IBUP600T42 PO; +LIDO1ADH93 TD; -LIDO5DIS41 TD; +ONDA-282 PO; -ONDA4TAB6 PO
[2025-01-28 04:15] VITALS: BP 136/90; TEMP 98.6; O2SAT 100
== END 2025-01-28 06:45 | disposition left against medical advice (07) ==
LOC: M ED 04:12
DX: Z53.21 Procedure and treatment not carried out due to patient leaving prior to being seen by health care provider (principal)

== ENCOUNTER 2025-04-07 23:19 | Emergency (ER) | payer SELFPAY ==
[~2025-04-07] VITALS: Ht 157.5 cm; Wt 64.5 kg
[2025-04-08] MEDS ORDERED: CETI10CH PO (00:45)
[2025-04-08 00:56] VITALS: BP 123/77; TEMP 97.6; O2SAT 99
[2025-04-08] MEDS: CETIRIZINE 10 MG TAB PO ONE (01:01)
== END 2025-04-08 01:06 | disposition home or self-care (01) ==
LOC: M ED 23:19
DX: T78.40XA Allergy, unspecified, initial encounter (principal); E11.9 Type 2 diabetes mellitus without complications; K21.9 Gastro-esophageal reflux disease without esophagitis; R51.9 Headache, unspecified; F31.9 Bipolar disorder, unspecified; Z88.1 Allergy status to other antibiotic agents; Z88.8 Allergy status to other drugs, medicaments and biological substances; Z91.013 Allergy to seafood; Z79.1 Long term (current) use of non-steroidal anti-inflammatories (NSAID); Z79.899 Other long term (current) drug therapy